=== PATIENT | male | born 1965 | race Hispanic/Latino ===

== ENCOUNTER 2025-01-24 15:30 | Outpatient (CLI) | payer OTHER | END 2025-01-24 15:31 | disposition home or self-care (01) | LOC: BICRAD 15:30 | PROVIDERS: ATTEND Nurse Practitioner Family | DX: K59.00 Constipation, unspecified (principal) | CPT/HCPCS: 74019 ==

== ENCOUNTER 2025-02-15 13:27 | Outpatient (CLI) | payer OTHER | END 2025-02-15 13:28 | disposition home or self-care (01) | LOC: BICRAD 13:27 | PROVIDERS: ATTEND Family Medicine | DX: R63.4 Abnormal weight loss (principal) | CPT/HCPCS: 71046 ==

== ENCOUNTER 2025-02-22 11:37 | Outpatient (CLI) | payer OTHER ==
[2025-02-22] MEDS ORDERED: Iopamidol 370 76% 100 ML VIAL ONE (13:30)
== END 2025-02-22 11:38 | disposition home or self-care (01) ==
LOC: CT 11:37
PROVIDERS: ATTEND Family Medicine
DX: R79.89 Other specified abnormal findings of blood chemistry (principal); R31.9 Hematuria, unspecified; N28.89 Other specified disorders of kidney and ureter; K74.60 Unspecified cirrhosis of liver
CPT/HCPCS: 74178; Q9967